=== PATIENT | male | born 1995 | race Caucasian/White ===

== ENCOUNTER 2019-11-10 20:29 | Emergency (ER) | payer BC, MEDICARE ==
[2019-11-10] MEDS ORDERED: Oseltamivir 75 MG CAP ONE (21:37)
[2019-11-10] MEDS ORDERED: Ondansetron ODT 4 MG TAB ONE (21:37)
== END 2019-11-10 21:45 | disposition home or self-care (01) ==
LOC: MADERS 20:29
DX: J11.1 Influenza due to unidentified influenza virus with other respiratory manifestations (principal); R11.0 Nausea
CPT/HCPCS: 99283; Q0162